=== PATIENT | female | born 1990 | race Caucasian/White ===

== ENCOUNTER 2016-11-01 04:46 | Emergency (ER) | payer SELFPAY ==
[~2016-11-01] VITALS: Ht 154.9 cm; Wt 54.0 kg
[2016-11-01 04:49] VITALS: Ht 154.9 cm; Wt 54.0 kg
== END 2016-11-01 07:18 | disposition left against medical advice (07) ==
LOC: E/R 04:46
DX: Z53.21 Procedure and treatment not carried out due to patient leaving prior to being seen by health care provider (principal)